=== PATIENT | female | born 1935 | race Caucasian/White ===

== ENCOUNTER 2020-09-19 19:11 | Emergency (ER) | payer OTHER ==
[~2020-09-19] VITALS: Ht 165.1 cm; Wt 63.5 kg
[2020-09-19] MEDS ORDERED: TRAMADOL HCL 50 MG TAB PO ONE (20:45)
[2020-09-19] MEDS ORDERED: HYDRALAZINE HCL 25 MG TAB PO ONE (21:15)
[2020-09-19] MEDS ORDERED: ULTRAM50 MG PO (21:47)
[2020-09-19 22:07] VITALS: BP 198/70
== END 2020-09-19 22:15 | disposition home or self-care (01) ==
LOC: ER 19:31
DX: S16.1XXA Strain of muscle, fascia and tendon at neck level, initial encounter (principal); W01.0XXA Fall on same level from slipping, tripping and stumbling without subsequent striking against object, initial encounter; Y93.01 Activity, walking, marching and hiking; Y92.007 Garden or yard of unspecified non-institutional (private) residence as the place of occurrence of the external cause; I10 Essential (primary) hypertension; F41.9 Anxiety disorder, unspecified
CPT/HCPCS: 70450; 72125; 99283

== ENCOUNTER 2021-03-14 13:38 | Emergency (ER) | payer OTHER ==
[~2021-03-14] VITALS: Ht 165.1 cm; Wt 63.5 kg
[~2021-03-14 13:38] MED LIST: ULTRAM50 MG PO
[2021-03-14] MEDS ORDERED: ACETAMINOPHEN 325 MG TAB PO ONE (14:00)
[2021-03-14] MEDS ORDERED: ONDANSETRON ODT4 MG PO (15:42)
[2021-03-14] MEDS ORDERED: ACETAMINOPHEN-1 EAC3 PO (15:42)
== END 2021-03-14 15:54 | disposition home or self-care (01) ==
LOC: ER 14:23
DX: S62.111A Displaced fracture of triquetrum [cuneiform] bone, right wrist, initial encounter for closed fracture (principal); W01.0XXA Fall on same level from slipping, tripping and stumbling without subsequent striking against object, initial encounter; Y93.H2 Activity, gardening and landscaping; Y92.007 Garden or yard of unspecified non-institutional (private) residence as the place of occurrence of the external cause; I10 Essential (primary) hypertension; F41.9 Anxiety disorder, unspecified
CPT/HCPCS: 99283